=== PATIENT | male | born 1990 | race Caucasian/White ===

== ENCOUNTER 2019-02-18 18:39 | Emergency (ER) | payer OTHER ==
[~2019-02-18] VITALS: Ht 188 cm; Wt 68.0 kg
[2019-02-18] MEDS ORDERED: CEPH500 PO (20:46)
[2019-02-18] MEDS ORDERED: Norco 5-325 Ta1 EACH PO (20:46)
[2019-02-18] MEDS ORDERED: IBUP600 PO (20:46)
== END 2019-02-18 21:20 | disposition home or self-care (01) ==
LOC: ER 18:39
DX: S66.822A Laceration of other specified muscles, fascia and tendons at wrist and hand level, left hand, initial encounter (principal); W26.0XXA Contact with knife, initial encounter
CPT/HCPCS: 12002; 73130; 99283-25; A9270; A9270-GY